=== PATIENT | female | born 1985 | race Caucasian/White ===

== ENCOUNTER 2024-06-19 17:44 | Emergency (ER) | payer BC ==
[2024-06-19] MEDS: Iopamidol 612 MG/ML 100 ML Bottle IVPUSH ONE (19:07)
[2024-06-19] MEDS: Sodium Chloride 0.9% 10 ML Syringe FLUSH PRN (19:07)
[2024-06-19 19:11] LABS: BASOPHILS ABSOLUTE AUTO 0.1 K/mm3 (0.0-0.2); BASOPHILS PERCENT AUTO 0.6 % (0.0-1.0); EOSINOPHILS ABSOLUTE AUTO 0.2 K/mm3 (0.0-0.4); HEMATOCRIT 47.5 % (37.0-47.0); HEMOGLOBIN 15.3 gm/dl (12.0-16.0); IMMATURE GRAN ABSOLUTE AUTO 0.04 K/mm3 (0.00-0.05); IMMATURE GRAN PERCENT AUTO 0.3 % (0.0-0.4); LYMPHOCYTES PERCENT AUTO 39.2 % (24.0-44.0); MEAN CORPUSCULAR HEMOGLOBIN 26.9 pg (28.0-32.0); MEAN CORPUSCULAR HGB CONC 32.2 g/dl (32.0-36.0); MEAN CORPUSCULAR VOLUME 83.5 fl (83.0-99.0); MEAN PLATELET VOLUME 8.7 fl (9.4-12.3); MONOCYTES PERCENT AUTO 6.5 % (0.0-8.0); NEUTROPHILS PERCENT AUTO 52.4 % (41.0-71.0); PLATELET COUNT,PLT 508 K/mm3 (150-400); RED BLOOD CELL COUNT 5.69 M/mm3 (4.10-5.30); WHITE BLOOD CELL COUNT,WBC 15.29 K/mm3 (3.9-11.3)
[2024-06-19] MEDS: Sodium Chloride 0.9% 1,000 ML IV STA ×2 (19:20→20:28)
[2024-06-19] MEDS: Ondansetron 4 MG/2 ML SDV IVPUSH ONE (19:21)
[2024-06-19] MEDS: Hydrocortisone Sodium Succinate 100 MG/2 ML SDV IVPUSH ONE (19:21)
[2024-06-19] MEDS: HYDROmorphone 0.5 MG/0.5 ML Syringe IVPUSH ONE (19:22)
[2024-06-19 19:23] LABS: A/G RATIO 0.8 (1-2); ANION GAP 10.9 (5-15); BILIRUBIN TOTAL 0.4 mg/dL (0.2-1.0); BUN/CREATININE RATIO 12.5 (14-18); C-REACTIVE PROTEIN 0.3 mg/dL (<0.30); CALCIUM 9.7 mg/dL (8.5-10.1); CREATININE 0.8 mg/dL (0.55-1.02); EST CRCL DRUG DOSING (CG) 74.67 mL/min; POTASSIUM,K 3.9 mEq/L (3.5-5.1); PROTEIN TOTAL,TP 9.3 g/dl (6.4-8.2)
[2024-06-19 20:37] LABS: APPEARANCE,URINE CLEAR (Clear); BILIRUBIN,URINE NEGATIVE (Negative); COLOR,URINE YELLOW (Yellow); GLUCOSE,URINE NEGATIVE (Negative); KETONES,URINE NEGATIVE (Negative); LEUKOCYTE ESTERASE,URINE TRACE (Negative); NITRITE,URINE NEGATIVE (Negative); OCCULT BLOOD,URINE TRACE-INTACT (Negative); PH,URINE 6.5 (5.0-8.0); PROTEIN,URINE NEGATIVE (Negative); UROBILINOGEN,URINE 0.2 (0.2-1.0)
[2024-06-19 20:56] LABS: BACTERIA,URINE FEW /hpf (FEW); MUCUS,URINE FEW /hpf (FEW); SQUAMOUS EPITHELIAL CELLS,UR 0-5 /hpf (0-5); WBC,URINE 30-40 /hpf (0-5)
== END 2024-06-19 21:35 | disposition home or self-care (01) ==
LOC: JD.ED 17:44
DX: K50.119 Crohn's disease of large intestine with unspecified complications (principal); E27.1 Primary adrenocortical insufficiency; I10 Essential (primary) hypertension; Z86.16 Personal history of COVID-19; Z88.1 Allergy status to other antibiotic agents; Z88.5 Allergy status to narcotic agent; Z88.8 Allergy status to other drugs, medicaments and biological substances; Z79.899 Other long term (current) drug therapy
CPT/HCPCS: 36415; 74177; 80053; 81001; 84703; 85025; 86140; 87086; 96361; 96374; 96375; 99284; J1720; J2405; J7030; Q9967

== ENCOUNTER 2025-01-04 03:23 | Emergency (ER) | payer BC ==
[2025-01-04] MEDS: Ketorolac 30 MG/ML SDV IM ONE (04:38)
== END 2025-01-04 04:43 | disposition home or self-care (01) ==
LOC: JD.ED 03:23
DX: K08.89 Other specified disorders of teeth and supporting structures (principal); I10 Essential (primary) hypertension; Z86.16 Personal history of COVID-19; Z79.899 Other long term (current) drug therapy; Z88.0 Allergy status to penicillin; Z88.5 Allergy status to narcotic agent
CPT/HCPCS: 96372; 99282; J1885